=== PATIENT | male | born 1955 | race Caucasian/White ===

== ENCOUNTER 2016-12-15 20:24 | Emergency (ER) | payer OTHER ==
[2016-12-15 20:38] VITALS: BP 152/100
--- NOTE | 2016-12-15 20:47 | EDM.PDOC ---
ED HPI Skin/Rash - General Chief Complaint: Laceration Stated Complaint: LACERATION TO LEFT HAND Time Seen by Provider: 12/15/16 20:27 Source: Reports: Patient History Limitations: Reports: No limitations - History of Present Illness INITIAL COMMENTS - FREE TEXT/NARRATIVE: this is a 61-year-old male. He slipped on the ice this evening and fell landing with his hands to stop his fall. He didn't notice any particular the time but when he got into the house he noted that his left hand with bleeding. He has a laceration at the base of the little finger on the volar surface. He has good range of motion of that little finger and neurovascular is intact distally. He denies any other injuries. He is up-to-date with his tetanus - Related Data Allergies Allergy/AdvReac Type Severity Reaction Status Date / Time No Known Allergies Allergy Verified 12/15/16 20:36 Home Meds: Ambulatory Orders Medication Instructions Recorded Confirmed . [No Known Home Meds] 12/15/16 12/15/16 Past Medical History Musculoskeletal History: Reports: Fracture - Past Surgical History GI Surgical History: Reports: Hernia, inguinal Social & Family History - Tobacco Use Smoking Status *Q: Never Smoker - Recreational Drug Use Recreational Drug Use: No ED ROS GENERAL - Review of Systems Review Of Systems: See Below Constitutional: Denies: fever, chills HEENT: Reports: No symptoms Respiratory: Reports: no symptoms Cardiovascular: Reports: No symptoms Endocrine: Reports: no symptoms GI/Abdominal: Reports: No symptoms : Reports: no symptoms Musculoskeletal: Reports: other (as per history of present illness) Skin: Reports: other (aspirin history of present illness) Neurological: Reports: no symptoms Psychiatric: Reports: No symptoms Hematologic/Lymphatic: Reports: no symptoms Immunologic: Reports: no symptoms ED EXAM, SKIN/RASH Exam: See Below Exam Limited By: No limitations General Appearance: alert, WD/WN, no apparent distress Eye Exam: bilateral eye: normal inspection Ears: normal external exam Nose: normal inspection Throat/Mouth: Normal inspection, Normal lips, Normal voice Head: normocephalic Neck: supple Respiratory/Chest: no respiratory distress, lungs clear, normal breath sounds Cardiovascular: regular rate, rhythm, no murmur GI/Abdominal: soft, non tender Back Exam: full range of motion Extremities: normal inspection, normal range of motion, other (the left hand at the base of the little finger of her lying the MP joint floor surface he got about a 1 cm laceration into the fatty tissue, he has full flexion of the little finger and neurovascular is intact distally. He has a small abrasion noted on the ring finger on the left hand over the volar surface of the proximal phalanx about 8 mm in size, full range of motion of all his digits is noted and no other trauma is noted, there is no bony abnormalities noted.) Neurological: alert, oriented Psychiatric: normal affect, normal mood Skin: Warm, Dry ED SKIN PROCEDURES - Laceration/Wound Repair Left Finger Lac/wound length in cm: 1 Appearance: subcutaneous Distal NVT: neuro & vascular intact Anesthetic type: local Local anesthesia - Lidocaine (Xylocaine): 1% plain Local anesthetic volume: 4cc Skin prep: chlorhexidine (hibiciens), providone-iodine (betadine) Saline irrigation (cc's): 100 Exploration/Debridement/Repair: wound explored Closed with: sutures Suture size: 4-0 # of sutures: 4 Suture type: interrupted Tetanus status addressed: Yes Complications: No Progress/Comments: patient tolerated the procedure well Course - Vital Signs Last Recorded V/S: Last Vital Signs Temp 97.9 F 12/15/16 20:36 Pulse 70 12/15/16 20:36 Resp 16 12/15/16 20:36 BP 152/100 H 12/15/16 20:36 Pulse Ox 99 12/15/16 20:36 - Orders/Labs/Meds Meds: Medications Discontinued Medications Generic Name Dose Route Start Last Admin Trade Name Darleen PRN Reason Stop Dose Admin Lidocaine HCl 20 ml 12/15/16 20:48 Xylocaine 1% INJECT 12/15/16 20:49 ONETIME ONE Lidocaine HCl 50 ml 12/15/16 20:51 12/15/16 20:56 Xylocaine 1% INJECT 12/15/16 20:52 50 ml ONETIME ONE Administration - Re-Assessments/Exams Free Text/Narrative Re-Assessment/Exam: 12/15/16 21:14 I explained to him the stitches out in 7-10 days. Watch for infection and keep it clean and dry and covered at work. Departure - Departure Time of Disposition: 21:14 Disposition: Home, Self-Care 01 Condition: good Clinical Impression: Laceration of left hand Qualifiers: Encounter type: initial encounter Qualified Code(s): S61.412A - Laceration without foreign body of left hand, initial encounter Forms: ED Department Discharge Additional Instructions: keep the wound clean and dry and covered he may take a shower as needed, followup with your local family physician in 7-10 days for suture removal, watch for infection such as increasing swelling redness or yellow drainage, return to the ER if there are complications
[2016-12-15] MEDS ORDERED: Lidocaine 1% 20 ML MDV INJECT ONE (20:48)
[2016-12-15] MEDS ORDERED: Lidocaine 1% 50 ML MDV INJECT ONE (20:51)
== END 2016-12-15 21:30 | disposition home or self-care (01) ==
LOC: JD.ED 20:24
DX: S61.217A Laceration without foreign body of left little finger without damage to nail, initial encounter (principal); W01.0XXA Fall on same level from slipping, tripping and stumbling without subsequent striking against object, initial encounter
CPT/HCPCS: 12001; 99282-25; 99283-25

== ENCOUNTER 2018-04-28 15:45 | Emergency (ER) | payer OTHER ==
--- NOTE | 2018-04-28 16:15 | EDM.PDOC ---
ED HPI GENERAL MEDICAL PROBLEM - General Chief Complaint: Trauma Stated Complaint: [facility] Time Seen by Provider: 04/28/18 15:59 Source of Information: Reports: Patient, EMS, RN Notes Reviewed - History of Present Illness INITIAL COMMENTS - FREE TEXT/NARRATIVE: 63-year-old male has been brought into the ED by ambulance for evaluation of left shoulder pain status post fall. He was up on the roof of a shed, accidentally fell off pending on his left side with primarily left shoulder pain. He also does have some low back pain. He was apparently at least somewhat ambulatory at the scene. he did receive 100 mics of fentanyl IV in route. He does deny headache or LOC. He denies neck pain or soreness. He does deny chest pain or difficulty breathing. No abdominal pain nausea vomiting. He states it was extremely painful to even attempt to move the left arm and felt that he was unable to do that prior to ambulance arrival. Left Shoulder Pain Score (Numeric/FACES): 6 - Related Data Allergies Allergy/AdvReac Type Severity Reaction Status Date / Time No Known Allergies Allergy Verified 04/28/18 15:57 Home Meds: Home Meds Acetaminophen/HYDROcodone [[place] 325-5 MG] 1 tab PO Q6H PRN #20 tablet 04/28/18 [Rx] Past Medical History Musculoskeletal History: Reports: Fracture - Past Surgical History GI Surgical History: Reports: Hernia, Inguinal Review of Systems - Review of Systems Review Of Systems: See Below Eyes: Reports: No Symptoms Ears: Reports: No Symptoms Nose: Reports: No Symptoms Mouth/Throat: Reports: No Symptoms Respiratory: Denies: Shortness of Breath, Pleuritic Chest Pain Cardiovascular: Denies: Chest Pain GI/Abdominal: Denies: Abdominal Pain, Nausea, Vomiting Musculoskeletal: Reports: Shoulder Pain, Arm Pain (Left shoulder), Back Pain ( left upper arm low mid back ). Denies: Neck Pain, Leg Pain Skin: Reports: No Symptoms Neurological: Denies: Numbness, Tingling ED EXAM, GENERAL - Physical Exam Exam: See Below General Appearance: Alert, No Apparent Distress Eye Exam: Bilateral Eye: PERRL Nose: Normal Inspection Throat/Mouth: Normal Inspection Head: Atraumatic. No: Facial Swelling Neck: Supple, Non-Tender, Full Range of Motion Respiratory/Chest: No Respiratory Distress, Lungs Clear, Normal Breath Sounds, Chest Non-Tender Cardiovascular: Regular Rate, Rhythm GI/Abdominal: Soft, Non-Tender. No: Guarding Back Exam: Vertebral Tenderness, Other (Low mid back no bruising or swelling visible). No: CVA Tenderness (L), CVA Tenderness (R) Extremities: Other (Moderate tenderness left anterior shoulder, mild tenderness lateral shoulder and upper arm, pain with active motion but does tolerate gentle passive motion quite well.). No: Leg Pain Neurological: Alert, Oriented Skin Exam: Warm, Dry, Normal Color Course - Vital Signs Last Recorded V/S: Last Vital Signs Temp 97.7 F 04/28/18 17:00 Pulse 70 04/28/18 17:00 Resp 16 04/28/18 17:00 BP 157/93 H 04/28/18 17:00 Pulse Ox 100 04/28/18 17:00 - Orders/Labs/Meds Orders: Active Orders 24 hr Category Date Time Status Lumbar Spine 2 or 3V [CR] Stat Exams 04/28/18 16:03 Taken Shoulder Comp Lt [CR] Stat Exams 04/28/18 16:02 Taken Ketorolac [Toradol] Med 04/28/18 17:00 Active 30 mg IVPUSH ONETIME Sodium Chloride 0.9% [Normal Saline] 1,000 ml Med 04/28/18 17:00 Active IV ONETIME Medication Orders Sodium Chloride (Normal Saline) 1,000 mls @ 999 mls/hr IV ONETIME PATRICIA Last Admin: 04/28/18 17:07 Dose: 999 mls/hr Ketorolac Tromethamine (Toradol) 30 mg IVPUSH ONETIME PATRICIA Last Admin: 04/28/18 17:07 Dose: 30 mg Labs: Laboratory Tests 04/28/18 Range/Units 15:59 WBC 9.54 H (4.23-9.07) K/mm3 RBC 5.51 (4.63-6.08) M/mm3 Hgb 16.6 (13.7-17.5) gm/L Hct 47.4 (40.1-51.0) % MCV 86.0 (79.0-92.2) fl MCH 30.1 (25.7-32.2) pg MCHC 35.0 (32.2-35.5) g/dl RDW Std Deviation 43.2 (35.1-43.9) fL Plt Count 204 (163-337) K/mm3 MPV 9.1 L (9.4-12.3) fl Neut % (Auto) 58.5 (34.0-67.9) % Lymph % (Auto) 32.0 (21.8-53.1) % [place] % (Auto) 7.5 (5.3-12.2) % Eos % (Auto) 1.3 (0.8-7.0) Baso % (Auto) 0.3 (0.1-1.2) % Neut # (Auto) 5.58 H (1.78-5.38) K/mm3 Lymph # (Auto) 3.05 (1.32-3.57) K/mm3 [place] # (Auto) 0.72 (0.30-0.82) K/mm3 Eos # (Auto) 0.12 (0.04-0.54) K/mm3 Baso # (Auto) 0.03 (0.01-0.08) K/mm3 Meds: Medications Generic Name Dose Route Start Last Admin Trade Name Freq PRN Reason Stop Dose Admin Sodium Chloride 1,000 mls @ 999 mls/hr 04/28/18 17:00 04/28/18 17:07 Normal Saline IV 999 mls/hr ONETIME PATRICIA Administration Ketorolac Tromethamine 30 mg 04/28/18 17:00 04/28/18 17:07 Toradol IVPUSH 30 mg ONETIME PATRICIA Administration Discontinued Medications Generic Name Dose Route Start Last Admin Trade Name Freq PRN Reason Stop Dose Admin Ondansetron HCl 4 mg 04/28/18 16:53 04/28/18 17:08 Zofran IVPUSH 04/28/18 16:54 4 mg ONETIME ONE Administration - Re-Assessments/Exams Free Text/Narrative Re-Assessment/Exam: 04/28/18 16:55 X-rays of the shoulder are normal, x-rays of the lumbar spine negative for fracture or other apparent abnormality. When we did sit him off the bed to see what he could do moving the arm he got weak, lightheaded, nauseated. Her for we are going to give him some Zofran IV, some fluid IV and a low dose of Toradol and then consider discharge when at all has had some time to work for him. 04/28/18 17:54. Feeling much better after fluid and meds, discharge instr. as documented. Departure - Departure Time of Disposition: 17:21 Disposition: Home, Self-Care 01 Condition: Fair Clinical Impression: Shoulder contusion Qualifiers: Encounter type: initial encounter Laterality: left Qualified Code(s): S40.012A - Contusion of left shoulder, initial encounter - Discharge Information Prescriptions: Acetaminophen/HYDROcodone [[place] 325-5 MG] 1 tab PO Q6H PRN #20 tablet PRN Reason: Pain Instructions: Contusion, [id number] Referrals: PCP,None [Primary Care Provider] - Forms: ED Department Discharge Additional Instructions: Arm sling, rest arm increase activity slowly as tolerated, alternate ice and heat as needed. Advil or ibuprofen 600 mg 2-3 times daily, you may take Tylenol in between doses for extra pain relief or hydrocodone if needed for severe pain. Do not take Tylenol and hydrocodone at the same time. Do not drive or work when taking hydrocodone. Follow-up clinic if not much better within 5-7 days as expected. Return to ED as needed if symptoms worsening in any way. - My Orders Last 24 Hours: My Active Orders 04/28/18 16:02 Shoulder Comp Lt [CR] Stat 04/28/18 16:03 Lumbar Spine 2 or 3V [CR] Stat 04/28/18 17:00 Ketorolac [Toradol] 30 mg IVPUSH ONETIME Sodium Chloride 0.9% [Normal Saline] 1,000 ml IV ONETIME - Assessment/Plan Last 24 Hours: My Active Orders 04/28/18 16:02 Shoulder Comp Lt [CR] Stat 04/28/18 16:03 Lumbar Spine 2 or 3V [CR] Stat 04/28/18 17:00 Ketorolac [Toradol] 30 mg IVPUSH ONETIME Sodium Chloride 0.9% [Normal Saline] 1,000 ml IV ONETIME
[2018-04-28] MEDS ORDERED: Ondansetron 4 MG/2 ML SDV IVPUSH ONE (16:53)
[2018-04-28] MEDS ORDERED: Sodium Chloride 0.9% 1,000 ML IV SCH (17:00)
[2018-04-28] MEDS ORDERED: Ketorolac 30 MG/ML SDV IVPUSH SCH (17:00)
[2018-04-28 17:07] VITALS: BP 157/93
--- NOTE | 2018-04-29 12:02 | CR ---
Lumbar spine: AP, lateral and coned-down lateral views centered to the lumbosacral junction were obtained. Comparison: No prior lumbar spine imaging. Disc space narrowing noted at T10-T11, T11-T12 and T12-L1 as well as L1-L2. More severe disc space narrowing noted at L5-S1. Other disc spaces are maintained. Minimal scattered endplate osteophytes are seen. Pedicles as well as visualized transverse and spinous processes are intact. Sacroiliac joints are within normal limits. Slight offset seen at the sacrococcygeal junction and difficult to exclude a fracture at this articulation. Impression: 1. Offset at the sacrococcygeal junction and difficult to exclude a fracture. Please correlate if patient has tailbone symptoms. 2. Degenerative change as noted above. Nothing acute seen within the lumbar spine. Diagnostic code #3
--- NOTE | 2018-04-29 14:36 | CR ---
Left shoulder: Three views of the left shoulder were obtained. Comparison: No prior shoulder study. Slight spurring off the glenoid is seen. Acromioclavicular joint appears within normal limits. No fracture, dislocation or other bony abnormality is identified. Impression: 1. Slight spurring off the glenoid. 2. Left shoulder study is otherwise unremarkable. Diagnostic code #1
== END 2018-04-28 17:55 | disposition home or self-care (01) ==
LOC: JD.ED 15:45
DX: S40.012A Contusion of left shoulder, initial encounter (principal); W19.XXXA Unspecified fall, initial encounter
CPT/HCPCS: 36415; 72100; 73030; 85025; 96361; 96374; 96375; 99284; J1885; J2405; J7040